=== PATIENT | female | born 1980 | race Caucasian/White ===

== ENCOUNTER → 2024-11-25 | Outpatient (CLI) | payer OTHER ==
--- NOTE | 2024-11-26 16:29 | PE ---
EXAMINATION TYPE: PET CT fusion skull to thigh DATE OF EXAM: 11/25/2024 CLINICAL INDICATION:Female, 43 years old with history of C50.811 BREAST CANCER; TECHNIQUE: Following the intravenous administration of 9.37 mCi of F-18 FDG, whole body images are performed from the skull base to the midthigh. Images are reviewed on the computer in the coronal, a xial, and sagittal planes. Reconstructed rotating images are created on independent workstation and reviewed on the computer. A non-contrast CT is performed in conjunction with the PET scan. Glucose level 98 mg/dL CT DLP: 933.2 mGycm, Automated exposure control for dose reduction was used. COMPARISON: CT 11/19/2024, PET/CT None, MRI: None FINDINGS: Mediastinal SUV mean is 2.1. Hepatic parenchyma SUV mean is 2.7. SKULL BASE AND NECK: No suspicious radiotracer activity. CHEST, MEDIASTINUM, AND HILAR REGION: No suspicious radiotracer activity. ABDOMEN AND PELVIS: No suspicious radiotracer activity. MUSCULOSKELETAL STRUCTURES: No suspicious radiotracer activity. OTHER CT: Minimal bilateral carotid bulb calcifications. Enlarged right thyroid lobe 3.8 cm hypodense nodule. No suspicious FDG activity above background. Bilateral breast prosthesis. IMPRESSION: 1. No suspicious radiotracer activity to suggest metastasis or recurrent disease. 2. Redemonstration of enlarged right thyroid lobe dominant 3.8 cm nodule without suspicious FDG acti vity above background. Recommend further evaluation with thyroid ultrasound if not previously perform ed. [facility], , 11/26/2024 4:26 PM
== END | disposition home or self-care (01) ==
LOC: RADPETMAIN 08:18
PROVIDERS: ATTEND Internal Medicine Hematology & Oncology
DX: C50.811 Malignant neoplasm of overlapping sites of right female breast (principal)
CPT/HCPCS: 78815; A9552